=== PATIENT | male | born 1960 | race Caucasian/White ===

== ENCOUNTER 2024-05-19 09:51 | Emergency (ER) | payer MEDICARE, SELFPAY ==
[2024-05-19 09:54] VITALS: BP 152/90
[2024-05-19] MEDS: TORADOL 30 MG IM (11:30)
[2024-05-19] MEDS: PERCOCET 5/325 2 TABLET PO (11:30)
--- NOTE | 2024-05-19 11:30 | ED.GENMED ---
History of Present Illness
General
Chief Complaint: Back Pain
Source: patient
Exam Limitations: none
Time Seen by Provider: 05/19/24 10:20
Nursing documentation reviewed up to this point in time: agreed with
History of Present Illness
History of Present Illness:
63-year-old male past medical history of diverticulitis chronic back pain presenting to the emergency department today with concerns of right buttock discomfort over the past month or so. Claims he had similar decades ago when he had a bone growth
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 Has not had ongoing symptoms for a long period of time but over the last month he had worsening discomfort mainly to the right buttock stemming from the right back. Denies any numbness weakness
changes in bowel movements.
Past History
Past History
ED Past Medical History: Other (Exostosis) and Other (Cervical herniated disks/chronic pain)
Social History
Tobacco: Non-smoker
Personal:
Living: with family
Employment: Not employed
Review of Systems
Review of Systems
Allergies reviewed?: Yes
All Other Systems: ROS reviewed and negative except as documented in HPI and ROS
Phy Exam
Physical Exam
Physical Exam:
GENERAL: Alert , in no apparent distress
EYE: pupils equal and reactive
NECK: Supple, no significant adenopathy.
ENT: o/p clr, mmm.
CARDIAC: Regular rate and rhythm .
LUNGS: Clear breath sounds bilaterally, no acute respiratory distress, no wheezes/rales/rhonchi
ABDOMEN: Soft, without focal tenderness, no r/g, no cvat
NEUROLOGICAL: Alert and oriented, no focal neuro deficits
SKIN: Warm and dry, skin intact.
MUSCULOSKELETAL: No edema, well perfused.
PSYCH: Normal and appropriate interaction.
Course
Orders/Labs/Results
Orders:
Orders
05/19/24 10:55
Hip, Right 2-3 Views [CR Hip - RT w/wo Pel 2-3 Vw*] Urgent
Comment:
Reason For Exam: right hip pain, hx of hereditary multiple exostosi
Include a pelvis x-ray?: Yes
Lumbar Spine, 2 or 3 View [CR Lumbar Spine 2 Or 3 Views] Urgent
Comment:
Reason For Exam: low back pain, hx of multiple exostosis
05/19/24 11:26
Ketorolac [Toradol] 30 mg IM NOW STA
Oxycodone/Acetaminophen [Percocet 5/325] 2 tablet PO NOW STA
Vital Signs
Initial and Last Documented VS:
Initial Vital Signs
Temp Pulse Resp BP Pulse Ox
98.0 F 77 16 152/90 98
05/19/24 09:54 05/19/24 09:54 05/19/24 09:54 05/19/24 09:54 05/19/24 09:54
Last Documented Vital Signs
Temp Pulse Resp BP Pulse Ox
98.0 F 75 17 150/88 98
05/19/24 09:54 05/19/24 13:40 05/19/24 13:40 05/19/24 13:40 05/19/24 09:54
MDM/Problems Addressed
MDM/Problems Addressed:
63-year-old male presenting to the emergency department today with concerns of right buttock discomfort radiating down the right leg ongoing for the last month unable to get relief at home with [id number] medications. 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 Here neuro vastly intact to the right lower extremity does have discomfort reproducible to the right buttock region.
Plan for imaging as well as pain medication. Imaging without acute abnormalities symptoms significantly improved after receiving medication here. He was given information for outpatient follow-up and otherwise were return precautions. No evidence
of life threat at this time.
*Critical Care Note
Total Time (30-74mins, 75-104mins- exclusive of procedures): Not Applicable
ED Attending Note
-
Portions of this chart may have been created with voice recognition software.� Occasional wrong word or��sound alike� substitutions may have occurred due to the inherent limitations of voice recognition software.
Discharge Plan
Departure
Patient Disposition: Home (Routine Discharge)
Date of Disposition: 05/19/24
Time of Disposition: 13:34
Patient with high blood pressure during this ER visit?: No
Condition: Good
Covid-19: Not Applicable
Discharge Problem:
Back pain
Instructions: Low Back Pain (DC)
Prescriptions:
New
meloxicam 15 mg tablet
15 mg PO DAILY 14 Days Qty: 14 0RF
oxycodone-acetaminophen [Endocet] 5-325 mg tablet
1 tab PO Q8H PRN (Reason: Pain) Qty: 7 0RF
No Action
multivitamin 1 EACH tablet
1 ea PO DAILY
ibuprofen 800 mg Tablet
800 mg PO Q6HPRN PRN (Reason: severe pain)
ascorbic acid (vitamin C) [Vitamin C] 500 mg Tablet
500 mg PO DAILY
glucosamine-chondroitin 500-400 mg Tablet
1 tab PO BID
omega-3 fatty acids-fish oil 684-1,200 mg Capsule,Delayed Release(Dr/Ec)
1 cap PO DAILY
psyllium husk 0.4 gram Capsule
0.4 g PO DAILY
amoxicillin-pot clavulanate 875-125 mg tablet
1 tab PO Q8H Qty: 24 0RF
Referrals:
Asael Orr DO [Family Provider] -
Dneny Ceja MD [Active] - Follow up in 5-7 days
Luis Dos Santos DO [Active] - Follow up in 5-7 days
Activity Restrictions/Additional Instructions:
You came to the emergency department today with concerns of back and buttock discomfort. Here you had reassuring x-rays. Please take prescribed medications and follow-up closely with the back doctor. Return to the emergency department any
worsening, new or concerning symptoms.
Interventions
Interventions:
*Risk Screen - Suicide Last Done: 05/19/24 09:54
*General Assessment Last Done: 05/19/24 10:41
*Neglect/Abuse Screening Last Done: 05/19/24 09:54
ED- Fall Risk Assessment Last Done: 05/19/24 10:41
*ED COVID-19 Vaccine History Last Done: 05/19/24 10:41
*Nursing Disposition Last Done: 05/19/24 13:41
ED-Musculoskeletal Assessment Last Done: 05/19/24 10:41
Discharge Date and Time
Discharge Date/Time: 05/19/24 13:42
Print Language: URDU
[2024-05-19 11:31] VITALS: BMI 28.6
[2024-05-19 13:40] VITALS: BP 150/88
== END 2024-05-19 13:42 | disposition home or self-care (01) ==
LOC: EMR 09:51
PROVIDERS: EMERGENCY PHYSICIAN Emergency Medicine; FAMILY PHYSICIAN Internal Medicine
DX: M54.50 Low back pain, unspecified (principal); G89.29 Other chronic pain
CPT/HCPCS: 96372; 99284; 72100; 73502

== ENCOUNTER 2024-07-18 06:34 | Day surgery (SDC) | payer MEDICARE, SELFPAY | END 2024-07-18 14:36 | disposition home or self-care (01) | LOC: GI 06:34 | PROVIDERS: ATTENDING PHYSICIAN Internal Medicine Gastroenterology | DX: Z12.11 Encounter for screening for malignant neoplasm of colon (principal); K64.8 Other hemorrhoids; K57.30 Diverticulosis of large intestine without perforation or abscess without bleeding; D12.2 Benign neoplasm of ascending colon; D12.3 Benign neoplasm of transverse colon; D12.5 Benign neoplasm of sigmoid colon; Z80.0 Family history of malignant neoplasm of digestive organs; Z86.0100 Personal history of colon polyps, unspecified | CPT/HCPCS: 45385; 88305 ==